=== PATIENT | female | born 1965 ===

== ENCOUNTER 2017-10-10 11:08 | Emergency (ER) | payer OTHER, SELFPAY ==
[2017-10-10 11:08] VITALS: BMI 27.6
[2017-10-10 11:19] VITALS: BP 128/82; PULSE 72; RESP 19; TEMP 97.2
[2017-10-10 11:27] VITALS: O2SAT 100
--- NOTE | 2017-10-10 11:52 | ED PDOC ---
HPI: CCC, URI, Sore Throat Time Seen by Provider: 10/10/17 11:20 Chief Complaint (Nursing): Cough, Cold, Congestion Chief Complaint (Provider): Nasal congestion, rhinorrhea x 2 weeks History Per: Patient History/Exam Limitations: no limitations Onset/Duration Of Symptoms: Days Current Symptoms Are (Timing): Still Present Location Of Pain: None Sick Contacts (Context): None Associated Symptoms: Fever ([place] feverish last night, did not take temperature ) , Nasal Congestion. denies: Cough, Nausea, Vomiting, Diarrhea Ear Symptoms: Bilateral: None Severity: Moderate Additional Complaint(s): Pt taking aristides but states it is not helping. Past Medical History Reviewed: Historical Data, Nursing Documentation, Vital Signs Vital Signs: Last Vital Signs Temp 97.2 F L 10/10/17 11:18 Pulse 72 10/10/17 11:18 Resp 19 10/10/17 11:18 BP 128/82 10/10/17 11:18 Pulse Ox 100 10/10/17 11:18 - Medical History PMH: No Chronic Diseases - Surgical History Surgical History: No Surg Hx - Family History Family History: States: Unknown Family Hx - Living Arrangements Living Arrangements: With Family - Social History Current smoker - smoking cessation education provided: No - Immunization History Hx Tetanus Toxoid Vaccination: Yes Hx Influenza Vaccination: No Hx Pneumococcal Vaccination: No - Home Medications Home Medications: Ambulatory Orders Medication Instructions Recorded Benzonatate [Tessalon Perle] 100 mg PO Q8 PRN #30 capsule 11/06/16 Cetirizine HCl [Zyrtec Allergy] 10 mg PO DAILY 11/06/16 Clotrimazole 1% Cream [Lotrimin 1% 1 applic EXT BID #1 tube 11/06/16 CREAM] Amoxicillin/Clavulanate [Augmentin 1 tab PO BID #20 tab 10/10/17 875 MG-125 MG] - Allergies Allergies/Adverse Reactions: Allergies Allergy/AdvReac Type Severity Reaction Status Date / Time No Known Allergies Allergy Verified 10/10/17 11:33 Review of Systems ROS Statement: Except As Marked, All Systems Reviewed And Found Negative Constitutional: Positive for: Fever. Negative for: Chills ENT: Positive for: Nose Pain, Nose Discharge, Nose Congestion Physical Exam - Reviewed Nursing Documentation Reviewed: Yes Vital Signs Reviewed: Yes - Physical Exam Appears: Positive for: Well, Non-toxic, No Acute Distress Head Exam: Positive for: ATRAUMATIC, NORMAL INSPECTION, NORMOCEPHALIC Skin: Positive for: Normal Color, Warm, DRY Eye Exam: Positive for: Normal appearance ENT: Positive for: Normal ENT Inspection, Other ((+) tednerness of maxillary sinuses with percussion) Neck: Positive for: Normal Cardiovascular/Chest: Positive for: Regular Rate, Rhythm Respiratory: Positive for: CNT, Normal Breath Sounds Back: Positive for: Normal Inspection Extremity: Positive for: Normal ROM Neurologic/Psych: Positive for: Alert - ECG O2 Sat by Pulse Oximetry: 100 Disposition - Clinical Impression Clinical Impression: Acute sinusitis - Disposition Disposition Time: 11:52 Condition: STABLE Prescriptions: Amoxicillin/Clavulanate [Augmentin 875 MG-125 MG] 1 tab PO BID #20 tab Instructions: Sinusitis (ED) Forms: [facility] (Cambodian) Print Language: MEXICAN
== END 2017-10-10 12:01 | disposition home or self-care (01) ==
LOC: H.ER 11:08
DX: J01.90 Acute sinusitis, unspecified (principal)

== ENCOUNTER 2017-10-26 16:38 | Emergency (ER) | payer OTHER ==
[2017-10-26 16:38] VITALS: BMI 27.6
[2017-10-26 16:58] VITALS: BP 136/86; PULSE 71; RESP 18; TEMP 98.1; O2SAT 98
--- NOTE | 2017-10-26 18:07 | ED PDOC ---
HPI: Headache Chief Complaint (Provider): Chronic Sinusitis History Per: Patient History/Exam Limitations: no limitations Onset/Duration Of Symptoms: Persistent Current Symptoms Are (Timing): Still Present Associated Symptoms: denies: Blurred Vision, Nausea, Vomiting Additional History Per: Patient Additional Complaint(s): This is 52 y/o female with PMH of sinusitis comes to the ED for evaluation and treatment of her chronic sinusitis. Patient admits runny nose, sore throat, nose and eye pain which got worse since last week. Patient has been having this kind of symptoms on and off. Denies any fever, headache, dizziness, numbness, tingling, nausea, vomiting, chest pain or SOB. Allergic medications help somewhat with her symptoms but never goes away. Patient visited ED last month for same symptoms. <Carina Abarca - Last Filed: 10/26/17 18:01> <Aston Anand - Last Filed: 10/26/17 18:22> Time Seen by Provider: 10/26/17 17:43 Chief Complaint (Nursing): Headache Supervising Attending Note - Supervising Attending Note The Documented history was done by the: Physician Nut Roaster The documented physical exam was done by the: Physician Nut Roaster The documented procedures were done by the: Physician Nut Roaster - Attestation: I have personally seen and examined this patient.: Yes I have fully participated in the care of the patient.: Yes I have reviewed all pertinent clinical information: Yes - Notes: Notes:: Pt. with cough, congestion. Chronic sinusitis. Ongoing for years. Seen multiple times for same. <Aston Anand - Last Filed: 10/26/17 18:22> Past Medical History Vital Signs: Last Vital Signs Temp 98.1 F 10/26/17 16:55 Pulse 71 10/26/17 16:55 Resp 18 10/26/17 16:55 BP 136/86 10/26/17 16:55 Pulse Ox 98 10/26/17 16:55 - Medical History PMH: Denies: Asthma, Migraine Other PMH: chronic sinusitis - Surgical History Surgical History: No Surg Hx - Family History Family History: States: Diabetes - Social History Current smoker - smoking cessation education provided: No Ex-Smoker (has not smoked in the last 12 months): No Alcohol: None Drugs: Denies - Immunization History Hx Tetanus Toxoid Vaccination: Yes Hx Influenza Vaccination: No Hx Pneumococcal Vaccination: No <Carina Abarca - Last Filed: 10/26/17 18:01> Vital Signs: Last Vital Signs Temp 98.1 F 10/26/17 16:55 Pulse 71 10/26/17 16:55 Resp 18 10/26/17 16:55 BP 136/86 10/26/17 16:55 Pulse Ox 98 10/26/17 18:13 <Aston Anand - Last Filed: 10/26/17 18:22> - Home Medications Home Medications: Ambulatory Orders Medication Instructions Recorded No Known Home Med 10/26/17 - Allergies Allergies/Adverse Reactions: Allergies Allergy/AdvReac Type Severity Reaction Status Date / Time No Known Allergies Allergy Verified 10/26/17 16:55 Review of Systems Constitutional: Negative for: Fever, Sweats, Weakness Eyes: Positive for: Pain, Redness. Negative for: Vision Change, Conjunctivae Inflammation ENT: Positive for: Nose Pain, Nose Discharge (clear), Nose Congestion, Throat Pain. Negative for: Ear Pain, Ear Discharge, Mouth Swelling, Throat Swelling Cardiovascular: Negative for: Chest Pain, Palpitations, Orthopnea Respiratory: Negative for: Cough, Shortness of Breath Gastrointestinal: Negative for: Nausea, Vomiting, Abdominal Pain, Diarrhea Genitourinary Female: Negative for: Dysuria Musculoskeletal: Negative for: Neck Pain, Shoulder Pain Skin: Negative for: Rash Neurological: Negative for: Weakness, Numbness, Confusion <Carina Abarca - Last Filed: 10/26/17 18:01> Physical Exam - Physical Exam Appears: Positive for: No Acute Distress Head Exam: Positive for: ATRAUMATIC, NORMAL INSPECTION, NORMOCEPHALIC Skin: Positive for: Normal Color, Warm, Dry Eye Exam: Positive for: Normal appearance, EOMI ENT: Positive for: Other (tender maxillary sinus and mildly frontal sinus) Neck: Positive for: Normal, Painless ROM, Supple Cardiovascular/Chest: Positive for: Regular Rate, Rhythm, Chest Non Tender Respiratory: Positive for: Normal Breath Sounds Gastrointestinal/Abdominal: Positive for: Normal Exam, Bowel Sounds, Soft. Negative for: Tenderness Back: Positive for: Normal Inspection Extremity: Positive for: Normal ROM Neurologic/Psych: Positive for: Alert, Oriented <Carina Abarca - Last Filed: 10/26/17 18:01> - Physical Exam ENT: Positive for: Nasal Congestion Cardiovascular/Chest: Positive for: Regular Rate, Rhythm Respiratory: Positive for: Normal Breath Sounds <Aston Anand - Last Filed: 10/26/17 18:22> - ECG O2 Sat by Pulse Oximetry: 98 - Progress ED Course And Treament: 53 y/o female with history of sinusitis and allergies - Toradol - Patient educated on Chronic sinusitis - Encouraged to follow up with PMD for further evaluations and treatment - Will discharge home <Carina Abarca - Last Filed: 10/26/17 18:01> - ECG Pulse Ox Interpretation: Normal - Progress ED Course And Treament: 1820: Pt. stable. AAox3. Chronic findings. FU with clinic. <Aston Anand - Last Filed: 10/26/17 18:22> Medical Decision Making Medical Decision Making: chronic sinus infection and allergies <Carina Abarca - Last Filed: 10/26/17 18:01> Disposition <Carina Abarca - Last Filed: 10/26/17 18:01> - Patient ED Disposition Is Patient to be Admitted: No Counseled Patient/Family Regarding: Diagnosis, Need For Followup, Rx Given - Disposition Disposition: Routine/Home Disposition Time: 18:21 <Aston Anand - Last Filed: 10/26/17 18:22> - Clinical Impression Clinical Impression: Chronic sinusitis - Disposition Referrals: [facility] [Outside] - 10/27/17 Condition: STABLE Additional Instructions: Return if not better in 3 days. Instructions: Sinusitis (ED) Print Language: SUDANESE
== END 2017-10-26 18:41 | disposition home or self-care (01) ==
LOC: H.ER 16:38
DX: J32.9 Chronic sinusitis, unspecified (principal)
CPT/HCPCS: 96372; 99284; J1885

== ENCOUNTER 2018-10-10 13:31 | Emergency (ER) | payer OTHER ==
[2018-10-10 13:32] VITALS: BMI 27.6
[2018-10-10] MEDS ORDERED: Sodium Chloride 0.9% 1,000 ML IV STA (14:27)
[2018-10-10 14:53] LABS: BASO # 0.1 K/uL (0.0-0.2); BASO % 0.8 % (0.0-2.0); EOS % 0.6 % (0.0-4.0); HEMOGLOBIN 12.5 g/dL (12.0-16.0); LYMPH % 14.6 % (20.0-40.0); MEAN CELL VOLUME 81.7 fl (81.0-99.0); MEAN CORPUSCULAR HEMOGLOBIN 27.4 pg (27.0-31.0); MEAN CORPUSCULAR HGB CONC 33.6 g/dL (33.0-37.0); MEAN PLATELET VOLUME 9.2 fl (7.2-11.7); MONO # 0.3 K/uL (0.0-0.8); NEUT # 5.5 K/uL (1.8-7.0); NRBC % 0.1 % (0.0-0.0); RBC 4.56 Mil/uL (3.80-5.20); RED CELL DISTRIBUTION WIDTH 13.2 % (11.5-14.5); WHITE BLOOD COUNT 6.8 K/uL (4.8-10.8)
[2018-10-10 14:56] LABS: SQUAMOUS EPITHIAL 3 /hpf (0-5); URINE BILIRUBIN NEGATIVE (NEGATIVE); URINE BLOOD NEGATIVE (NEGATIVE); URINE CLARITY SLIGHTY-CLOUDY (Clear); URINE COLOR YELLOW (YELLOW); URINE GLUCOSE (UA) NEG (NEGATIVE); URINE LEUKOCYTE ESTERASE NEG Leu/uL (Negative); URINE PROTEIN NEGATIVE (NEGATIVE); URINE UROBILINOGEN 0.2-1.0 mg/dL (0.2-1.0)
[2018-10-10 15:01] LABS: ALB/GLOB RATIO 1.4 (1.0-2.1); ALBUMIN 4.3 g/dL (3.5-5.0); ALT/SGPT 66 U/L (9-52); AST/SGOT 37 U/L (14-36); BLOOD UREA NITROGEN 17 mg/dl (7-17); CALCIUM 9.4 mg/dL (8.4-10.2); GFR NON-AFRICAN AMERICAN > 60; LIPASE 70 U/L (23-300)
--- NOTE | 2018-10-10 16:19 | ED PDOC ---
HPI: Abdomen Time Seen by Provider: 10/10/18 14:19 Chief Complaint (Nursing): Abdominal Pain Chief Complaint (Provider): Abdominal Pain History Per: Patient History/Exam Limitations: no limitations Onset/Duration Of Symptoms: Days (x1 day) Additional Complaint(s): Lora Tracey is a 53 year old female with no past medical history, who presents to the emergency department complaining of vomiting, onset x1 day. She states that since this morning she has vomited five times and has abdominal pain that started last night after drinking beer. She states she has no sick contacts. PMD: Non H provider Past Medical History Reviewed: Historical Data, Nursing Documentation, Vital Signs Vital Signs: Last Vital Signs Temp 98.4 F 10/10/18 13:44 Pulse 72 10/10/18 13:44 Resp 16 10/10/18 13:44 BP 148/83 10/10/18 13:44 Pulse Ox 99 10/10/18 13:44 - Medical History PMH: Denies: Asthma, Migraine - Family History Family History: States: Unknown Family Hx, Diabetes - Immunization History Hx Tetanus Toxoid Vaccination: Yes Hx Influenza Vaccination: No Hx Pneumococcal Vaccination: No - Home Medications Home Medications: Ambulatory Orders Medication Instructions Recorded RX: No Known Home Med 10/26/17 - Allergies Allergies/Adverse Reactions: Allergies Allergy/AdvReac Type Severity Reaction Status Date / Time No Known Allergies Allergy Verified 10/10/18 13:44 Review of Systems ROS Statement: Except As Marked, All Systems Reviewed And Found Negative Gastrointestinal: Positive for: Vomiting, Abdominal Pain Physical Exam - Reviewed Nursing Documentation Reviewed: Yes Vital Signs Reviewed: Yes - Physical Exam Appears: Positive for: Well, No Acute Distress (obese woman lying on stretcher) Head Exam: Positive for: ATRAUMATIC, NORMOCEPHALIC Cardiovascular/Chest: Positive for: Regular Rate, Rhythm. Negative for: Murmur Respiratory: Positive for: Normal Breath Sounds. Negative for: Respiratory Distress Gastrointestinal/Abdominal: Positive for: Soft. Negative for: Tenderness, Guarding, Rebound, Other (Izquierdo's sign; ) - Laboratory Results Result Diagrams: 10/10/18 14:40 10/10/18 14:40 - ECG O2 Sat by Pulse Oximetry: 99 (RA) Pulse Ox Interpretation: Normal Medical Decision Making Medical Decision Making: Time: 14:26 A/P: Work up for gastroenteritis, basic labs, IV fluids, GI cocktail and reassess patient. Plan: --CMP --Lipase --CBC with differential --UA --Sodium chloride 1,000 ml --Zofran 4 mg IVP --Pepcid 40 mg IVP --Abd US 1600 Pt with continued abdominal pain that is now described as worse in the RUQ. Elevated ALT. Will get RUQ sono to rule out stones/cholecystitis. 18:30 Pt with unremarkable ultrasound. Pt now with improved symptoms and tolerating PO. Pt to follow up with a PMD for further evaluation of elevated liver enzymes. Pt to be discharged home with referral for outpatient clinic. Firearms Expert #:[id number] ---- Scribe Attestation: Documented by Luis Enrique Palmer , acting as a scribe for Lorraine Camp MD. Provider Scribe Attestation: All medical record entries made by the Scribe were at my direction and pe rsonally dictated by me. I have reviewed the chart and agree that the record accurately reflects my personal performance of the history, physical exam, medical decision making, and the department course for this patient. I have also personally directed, reviewed, and agree with the discharge instructions and disposition. Disposition - Clinical Impression Clinical Impression: Abdominal pain, Elevated liver enzymes - Disposition Referrals: [facility] [Outside] Disposition Time: 18:30 Condition: IMPROVED Additional Instructions: Follow up with outpatient clinic for evaluation of elevated liver enzyme. Return to the emergency department if symptoms worsen or if new symptoms develop. Instructions: Acute Abdomen (Belly Pain), Adult (DC), Viral Gastroenteritis, Ad ult (DC) Forms: [employer] (Korean), [employer] (Swedish) Print Language: LITHUANIAN
--- NOTE | 2018-10-10 17:20 | US ---
Date of service: 10/10/2018 HISTORY: RUQ pain COMPARISON: None. TECHNIQUE: Sonographic evaluation of the right upper quadrant of the abdomen. FINDINGS: LIVER: Measures 15.7 cm in length. Normal echogenicity of the liver parenchyma. No mass. No intrahepatic bile duct dilatation. GALLBLADDER: Unremarkable. No gallstones. COMMON BILE DUCT: Measures 3 mm. No stones. No dilatation. PANCREAS: Unremarkable as visualized. No mass. No ductal dilatation. RIGHT KIDNEY: Measures 11.5 cm in length. Normal echogenicity. No calculus, mass, or hydronephrosis. AORTA: No aneurysmal dilatation. IVC: Unremarkable. OTHER FINDINGS: None . IMPRESSION: UNREMARKABLE ABDOMINAL ULTRASOUND EXAMINATION. NO EVIDENCE OF CHOLELITHIASIS OR CHOLECYSTITIS.
[2018-10-10 18:57] VITALS: BP 136/76; PULSE 78; RESP 18; TEMP 98.1
[2018-10-16 03:50] VITALS: O2SAT 99
== END 2018-10-10 18:56 | disposition home or self-care (01) ==
LOC: H.ER 13:31
DX: R10.9 Unspecified abdominal pain (principal); R74.8 Abnormal levels of other serum enzymes
CPT/HCPCS: 76705; 80053; 81003; 83690; 85025; 96374; 96375; 99283; J2405; J7030

== ENCOUNTER 2019-02-22 22:51 | Emergency (ER) | payer SELFPAY ==
[2019-02-22 22:51] VITALS: BMI 27.6
[2019-02-22 23:25] VITALS: BP 145/81; PULSE 75; RESP 19; TEMP 98.3; O2SAT 98
--- NOTE | 2019-02-23 01:13 | ED PDOC ---
HPI: Female Pain Time Seen by Provider: 02/23/19 00:30 Chief Complaint (Nursing): Female Genitourinary Chief Complaint (Provider): Female Genitourinary History Per: Patient History/Exam Limitations: no limitations Onset/Duration Of Symptoms: Other (8 weeks) Additional Complaint(s): 53 years old female with no significant PMHx presents to ER for evaluation of small pump to her anus for 8 weeks. Patient reports it is painful when she tries to have bowel movement with occasional bleeding. Patient denies fever, taking anything for pain or history of hemorrhoids in the past. PMD: Clinic Past Medical History Reviewed: Historical Data, Nursing Documentation, Vital Signs Vital Signs: Last Vital Signs Temp 98.3 F 02/22/19 23:21 Pulse 75 02/22/19 23:21 Resp 19 02/22/19 23:21 BP 145/81 02/22/19 23:21 Pulse Ox 98 02/22/19 23:21 Primary Care Provider: Non [facility] Provider, - Medical History PMH: No Chronic Diseases Denies: Asthma, Migraine - Surgical History Surgical History: No Surg Hx - Family History Family History: States: Unknown Family Hx, Diabetes - Immunization History Hx Tetanus Toxoid Vaccination: Yes Hx Influenza Vaccination: No Hx Pneumococcal Vaccination: No - Home Medications Home Medications: Ambulatory Orders Medication Instructions Recorded Hydrocortisone 2.5% (Rectal) 30 applic [place] BID #1 tube 02/23/19 [Anusol-HC] - Allergies Allergies/Adverse Reactions: Allergies Allergy/AdvReac Type Severity Reaction Status Date / Time pollen extracts Allergy CONGESTION Verified 02/22/19 23:25 Review of Systems ROS Statement: Except As Marked, All Systems Reviewed And Found Negative Constitutional: Negative for: Fever Genitourinary Female: Positive for: Other (Small pump to anus) Physical Exam - Reviewed Nursing Documentation Reviewed: Yes Vital Signs Reviewed: Yes - Physical Exam Appears: Positive for: Well, Non-toxic, No Acute Distress Head Exam: Positive for: ATRAUMATIC, NORMOCEPHALIC Skin: Positive for: Normal Color Eye Exam: Positive for: Normal appearance ENT: Positive for: Normal ENT Inspection Cardiovascular/Chest: Positive for: Regular Rate, Rhythm Respiratory: Positive for: Normal Breath Sounds Gastrointestinal/Abdominal: Positive for: Normal Exam. Negative for: Distended, Guarding Rectal: Positive for: Hemorrhoids (Normal color, protruding, non-thrombosed. Tender to touch. No bleeding). Negative for: Other (Redness or induation around area of susptect, rectal abscess) Neurological/Psych: Positive for: Awake, Alert, Oriented (x3) - ECG O2 Sat by Pulse Oximetry: 98 (RA) Pulse Ox Interpretation: Normal Medical Decision Making Medical Decision Makin Patient to be discharged home with anusol, instructed to followup with the clinic and given GI referral. Clinical findings discussed with patient who understands and agreed to plan. Scribe Attestation: Documented by Lesley Shah, acting as a scribe for Shanae Alan APN. Provider Scribe Attestation: All medical record entries made by the Scribe were at my direction and personally dictated by me. I have reviewed the chart and agree that the record accurately reflects my personal performance of the history, physical exam, medical decision making, and the department course for this patient. I have also personally directed, reviewed, and agree with the discharge instructions and disposition. Disposition - Clinical Impression Clinical Impression: Hemorrhoid prolapse - Patient ED Disposition Is Patient to be Admitted: No Counseled Patient/Family Regarding: Diagnosis - Disposition Referrals: [facility] [Outside] Luis Bradford MD [Staff Provider] - Disposition: Routine/Home Disposition Time: 01:13 Condition: GOOD Prescriptions: Hydrocortisone 2.5% (Rectal) [Anusol-HC] 30 applic [place] BID #1 tube Instructions: Hemorrhoids (DC)
== END 2019-02-23 01:30 | disposition home or self-care (01) ==
LOC: H.ER 22:51
DX: K64.8 Other hemorrhoids (principal)